=== PATIENT | female | born 1970 | race Caucasian/White ===

== ENCOUNTER → 2021-01-28 13:46 | Outpatient (BNVA) | payer BC, SELFPAY | PROVIDERS: Family Provider Internal Medicine Nephrology; Visit Provider Obstetrics & Gynecology | DX: E03.9 Hypothyroidism, unspecified (principal); N95.1 Menopausal and female climacteric states | CPT/HCPCS: 84443 ==

== ENCOUNTER → 2021-03-07 14:52 | Outpatient (BNVA) | payer BC, SELFPAY | PROVIDERS: Family Provider Internal Medicine Nephrology; Visit Provider Obstetrics & Gynecology | DX: Z00.00 Encounter for general adult medical examination without abnormal findings (principal); E03.9 Hypothyroidism, unspecified | CPT/HCPCS: 84443; 88175 ==